=== PATIENT | female | born 1960 | race Hispanic/Latino ===

== ENCOUNTER 2023-08-02 11:15 | Emergency (ER) | payer OTHER, MEDICARE ==
[~2023-08-02] VITALS: Ht 165.1 cm; Wt 117.5 kg
[~2023-08-02 11:15] MED LIST: ACET-2079 PO; AMYL1CAP63 PO; ARIP10TA8 PO; CETI10TA87 PO; CLON0.5T23 PO; DICY20TA3 PO; ESOM40CA54 PO; FAMO40TA75 PO; FLUT16H NS; FURO40SO PO; FURO40TA5 PO; LIDO73LI TP; METO5TAB7 PO; MIRT-73 PO; MULT; NITR100C PO; ONDA8TAB12 PO; POTA-81 PO; PRED20TA3 PO; TELM20TA8 PO; VORT20TA PO; [UNRECOGNIZED DRUG - CODE] PO; [UNRECOGNIZED DRUG - OTHER]; [UNRECOGNIZED DRUG - REMARK]
[2023-08-02] MEDS: HYDROCODONE/ACETAMINOPHEN 5/325 MG TAB PO ONE (12:43)
[2023-08-02] MEDS ORDERED: IBUP-2077 PO (13:50)
[2023-08-02 13:56] VITALS: BP 149/84; PULSE 84; RESP 21; O2SAT 97
== END 2023-08-02 14:06 | disposition home or self-care (01) ==
LOC: EDH 11:15
DX: S93.491A Sprain of other ligament of right ankle, initial encounter (principal); M79.671 Pain in right foot; I10 Essential (primary) hypertension; J45.909 Unspecified asthma, uncomplicated; M19.90 Unspecified osteoarthritis, unspecified site; M79.7 Fibromyalgia; Z79.899 Other long term (current) drug therapy; Z90.49 Acquired absence of other specified parts of digestive tract; Z90.710 Acquired absence of both cervix and uterus; Z87.442 Personal history of urinary calculi; Z88.8 Allergy status to other drugs, medicaments and biological substances; Z98.890 Other specified postprocedural states; X58.XXXA Exposure to other specified factors, initial encounter; Y93.01 Activity, walking, marching and hiking; Y92.89 Other specified places as the place of occurrence of the external cause; Y99.8 Other external cause status
CPT/HCPCS: 73610; 73630

== ENCOUNTER 2023-11-21 10:26 | Emergency (ER) | payer OTHER, MEDICARE ==
[~2023-11-21] VITALS: Ht 165.1 cm; Wt 120.7 kg
[~2023-11-21 10:26] MED LIST changes: +ALBU2.5V2 IH; -AMYL1CAP63 PO; -ARIP10TA8 PO; -CETI10TA87 PO; -CLON0.5T23 PO; -DICY20TA3 PO; -ESOM40CA54 PO; -FAMO40TA75 PO; -FLUT16H NS; -FURO40SO PO; -FURO40TA5 PO; +LEVO750T39 PO; -LIDO73LI TP; -METO5TAB7 PO; -MIRT-73 PO; +MIRT-92 PO; +MONT-46 PO; -MULT; -NITR100C PO; -ONDA8TAB12 PO; -POTA-81 PO; -PRED20TA3 PO; +SERT-439 PO; -TELM20TA8 PO; +TRAZ-187 PO; -VORT20TA PO; -[UNRECOGNIZED DRUG - CODE] PO; -[UNRECOGNIZED DRUG - OTHER]; -[UNRECOGNIZED DRUG - REMARK]
[2023-11-21 11:32] LABS: BASOPHILS # (AUTO) 0.04 K/uL (0.00-0.20); BASOPHILS % (AUTO) 0.4 % (0.0-5.0); EOSINOPHILS # (AUTO) 0.16 K/uL (0.00-0.70); EOSINOPHILS % (AUTO) 1.6 % (0.0-8.0); IMMATURE GRANULOCYTE ABSOLUTE 0.15 K/uL (0-1); LYMPHOCYTES # (AUTO) 3.1 K/uL (1.0-4.8); LYMPHOCYTES % (AUTO) 31.6 % (21.0-51.0); MEAN CORPUSCULAR HGB CONC 31.6 g/dL (32.0-36.0); MEAN CORPUSCULAR VOLUME 88.5 fL (79-99); MONOCYTES # (AUTO) 0.8 K/uL (0.1-1.0); MONOCYTES % (AUTO) 8.5 % (3.0-13.0); NEUTROPHILS # (AUTO) 5.6 K/uL (1.8-7.7); NEUTROPHILS % (AUTO) 56.4 % (40.0-77.0); PLATELET COUNT (AUTO) 209 K/uL (130-400); RED BLOOD CELL COUNT(AUTO) 4.18 MIL/uL (4.00-5.50); RED CELL DISTRIBUTION WIDTH 16.1 % (11.0-15.5); WHITE BLOOD COUNT (AUTO) 9.9 K/uL (4.8-10.8)
[2023-11-21 11:47] LABS: POTASSIUM 4.3 mmol/L (3.5-5.1)
[2023-11-21 11:54] LABS: BILIRUBIN,TOTAL 0.4 mg/dL (0.2-1.0); TOTAL PROTEIN, SERUM 6.5 g/dL (6.0-8.3)
[2023-11-21 12:05] LABS: B-TYPE NATRIURETIC PEPTIDE 17 pg/mL (0-100)
[2023-11-21] MEDS: SOLU-MEDROL 125MG VIAL IVP ONE (13:21)
[2023-11-21 13:39] VITALS: PULSE 85; RESP 18
[2023-11-21] MEDS: ALBUTEROL 0.083% 2.5 MG/3 ML INH IH ONE (13:40)
[2023-11-21] MEDS: BUDESONIDE 0.5 MG/2 ML INH IH STA (13:40)
[2023-11-21] MEDS ORDERED: AUD IH (15:01)
[2023-11-21] MEDS ORDERED: CLAR-59 PO (15:01)
[2023-11-21 15:25] VITALS: BP 139/78; PULSE 85; RESP 20; O2SAT 97
== END 2023-11-21 15:24 | disposition home or self-care (01) ==
LOC: EDH 10:26
DX: J44.1 Chronic obstructive pulmonary disease with (acute) exacerbation (principal); I11.0 Hypertensive heart disease with heart failure; I50.9 Heart failure, unspecified; M19.90 Unspecified osteoarthritis, unspecified site; M79.7 Fibromyalgia; Z20.822 Contact with and (suspected) exposure to COVID-19; Z88.8 Allergy status to other drugs, medicaments and biological substances; Z79.899 Other long term (current) drug therapy; Z90.49 Acquired absence of other specified parts of digestive tract; Z90.710 Acquired absence of both cervix and uterus
CPT/HCPCS: 36415; 71045; 80053; 83735; 83880; 84484; 85025; 87426; 93005; 94640; 96372; 96374; J2919

== ENCOUNTER 2023-12-29 10:59 | Inpatient (IN) | payer OTHER, MEDICARE ==
[~2023-12-29] VITALS: Ht 165.1 cm; Wt 123.5 kg
[~2023-12-29 10:59] MED LIST changes: +AUD IH; +CLAR-59 PO
[2023-12-29 11:47] LABS: BASOPHILS # (AUTO) 0.04 K/uL (0.00-0.20); BASOPHILS % (AUTO) 0.4 % (0.0-5.0); EOSINOPHILS # (AUTO) 0.09 K/uL (0.00-0.70); EOSINOPHILS % (AUTO) 0.9 % (0.0-8.0); HEMATOCRIT 37.6 % (36-48); IMMATURE GRANULOCYTE ABSOLUTE 0.07 K/uL (0-1); LYMPHOCYTES # (AUTO) 2.7 K/uL (1.0-4.8); LYMPHOCYTES % (AUTO) 26.8 % (21.0-51.0); MEAN CORPUSCULAR HEMOGLOBIN 28.6 pg (27.0-33.0); MEAN CORPUSCULAR HGB CONC 31.4 g/dL (32.0-36.0); MONOCYTES # (AUTO) 0.5 K/uL (0.1-1.0); MONOCYTES % (AUTO) 5.4 % (3.0-13.0); NEUTROPHILS # (AUTO) 6.6 K/uL (1.8-7.7); NEUTROPHILS % (AUTO) 65.8 % (40.0-77.0); PLATELET COUNT (AUTO) 204 K/uL (130-400); RED BLOOD CELL COUNT(AUTO) 4.13 MIL/uL (4.00-5.50); RED CELL DISTRIBUTION WIDTH 14.4 % (11.0-15.5)
[2023-12-29 11:57] LABS: CREATININE 1.1 mg/dL (0.5-1.0); POTASSIUM 3.7 mmol/L (3.5-5.1)
[2023-12-29 12:18] LABS: B-TYPE NATRIURETIC PEPTIDE 14 pg/mL (0-100)
[2023-12-29] MEDS: furoSEMIDE 40MG VIAL IV ONE (12:21)
[2023-12-29 12:56] VITALS: PULSE 62; RESP 24
[2023-12-29] MEDS: IpraTROPium/alBUTERol SULFATE 3 ML SOLUTION IH ONE (12:56)
[2023-12-29 14:22] LABS: SARS-CoV-2, RNA, NAAT NEGATIVE SARS CoV-2 (NEGATIVE)
[2023-12-29 14:29] LABS: INFLUENZA TYPE A Negative For Type A (NEGATIVE); INFLUENZA TYPE B Negative For Type B (NEGATIVE)
[2023-12-29 15:43] LABS: ABG BASE EXCESS 8.1 mmol/L (-2.0-3.0); ABG HCO3 34.4 mmol/L (21.0-28.0); ABG OXYGEN SATURATION 96.5 % (94.0-98.0); ABG PCO2 54 mmHg (32-45); ABG PH 7.425 (7.350-7.450); VENT MODE, BG NC (ROOM AIR)
[2023-12-29] MEDS ORDERED: LOSA25TA41 PO (16:59)
[2023-12-29] MEDS ORDERED: ACET-2079 PO (16:59)
[2023-12-29] MEDS ORDERED: CLON0.252 PO (16:59)
[2023-12-29] MEDS ORDERED: ATOR10TA69 PO (16:59)
[2023-12-29] MEDS ORDERED: PRED20TA3 PO (16:59)
[2023-12-29] MEDS ORDERED: CICL6.6S22 TP (16:59)
[2023-12-29] MEDS ORDERED: METO-391 PO (16:59)
[2023-12-29] MEDS ORDERED: PREG100C PO (16:59)
[2023-12-29] MEDS ORDERED: MAG/ALUM/SIMETH 30 ML UDCUP PO PRN (17:00)
[2023-12-29] MEDS ORDERED: guaiFENesin-DM 200/20MG 10ML PO PRN (17:00)
[2023-12-29] MEDS ORDERED: cefTRIAXone 1G VIAL 1 GM in 0.9%NACL 50ML 50 ML IV SCH (17:00)
[2023-12-29] MEDS ORDERED: NITROGLYCERIN 0.4 MG SL TAB SL PRN (17:00)
[2023-12-29] MEDS ORDERED: hydrALAZine 20MG/ML VIAL IV PRN (17:00)
[2023-12-29] MEDS ORDERED: LACTULOSE 20 GM/30 ML UDCUP PO PRN (17:00)
[2023-12-29] MEDS ORDERED: DiphenhydrAMINE HCL 25 MG CAPSULE PO PRN (17:00)
[2023-12-29] MEDS: cefTRIAXone 1G VIAL IVPB SCH (17:00)
[2023-12-29] MEDS ORDERED: ONDANSETRON 4MG INJ IV PRN (17:00)
[2023-12-29] MEDS ORDERED: GLUCAGON 1MG KIT 1 MG ML IM PRN (17:30)
[2023-12-29] MEDS ORDERED: DEXTROSE 50%-WATER 50 ML DISP.SYRIN IV PRN (17:30)
[2023-12-29] MEDS: cefTRIAXone 1G VIAL IVPB ONE (17:33)
[2023-12-29 18:20] LABS: HEMOGLOBIN A1C 7.1 % (4.0-6.0)
[2023-12-29] MEDS: IpraTROPium/alBUTERol SULFATE 3 ML SOLUTION IH SCH (18:31)
[2023-12-29 18:32] VITALS: PULSE 82; RESP 22
[2023-12-29 18:33] VITALS: PULSE 84; RESP 19; O2SAT 97
[2023-12-29] MEDS: SODIUM CHLORIDE 3% FOR INHALATION 4 ML/AMP VIAL.NEB IH ONE (18:47)
[2023-12-29] MEDS: AZITHROMYCIN 500MG+NS 250ML 250 ML IV SCH (19:14)
[2023-12-29] MEDS: acetaMINOPHEN 325 MG TAB PO PRN (19:36)
[2023-12-29] MEDS: FAMOTIDINE 20MG VIAL IV SCH (20:52)
[2023-12-29] MEDS: atorVAStatin 10 MG TABLET PO SCH (20:53)
[2023-12-29] MEDS: clonazePAM 0.5 MG TABLET PO SCH (20:53)
[2023-12-29] MEDS: pregABALin 100 MG CAPSULE PO SCH (20:53)
[2023-12-29] MEDS: HEParin 5,000 UNIT VIAL SQ SCH (20:55)
[2023-12-29] MEDS: INSULIN humuLIN R 100 UNIT/ML 3ML SQ SCH (20:56)
[2023-12-29] MEDS: CICLOPIROX TP SCH (21:00)
[2023-12-29 23:23] VITALS: BP 116/73; PULSE 89; RESP 24; TEMP 98.3
[2023-12-29 23:37] VITALS: PULSE 84; PULSE 86; RESP 19; RESP 22; O2SAT 97
[2023-12-29 23:49] VITALS: PULSE 80; RESP 19; O2SAT 96
[2023-12-30] VITALS (14 sets, daily range): BP systolic 101–136; BP diastolic 59–90; PULSE 50–87; RESP 18–22; TEMP 97.7–98.7; O2SAT 95–100
[2023-12-30] MEDS: SODIUM CHLORIDE 3% FOR INHALATION 4 ML/AMP VIAL.NEB IH ONE ×2 (06:28→20:12)
[2023-12-30] MEDS ORDERED: ACET-2079 PO (07:57)
[2023-12-30] MEDS: PREDNISONE 20 MG TABLET PO SCH (07:59)
[2023-12-30] MEDS: LoSARTan 25 MG TABLET PO SCH (08:00)
[2023-12-30] MEDS: metOPROLol sucCINATE 50 MG TAB.SR.24H PO SCH (08:00)
[2023-12-30] MEDS: furoSEMIDE 40MG VIAL IVP SCH (08:00)
[2023-12-30] MEDS: acetaMINOPHEN WITH coDEINE 1 TAB TAB PO PRN (08:01)
[2023-12-30 08:13] LABS: BASOPHILS # (AUTO) 0.03 K/uL (0.00-0.20); BASOPHILS % (AUTO) 0.3 % (0.0-5.0); EOSINOPHILS # (AUTO) 0.16 K/uL (0.00-0.70); EOSINOPHILS % (AUTO) 1.4 % (0.0-8.0); HEMATOCRIT 37.2 % (36-48); IMMATURE GRANULOCYTE ABSOLUTE 0.05 K/uL (0-1); LYMPHOCYTES # (AUTO) 5.8 K/uL (1.0-4.8); LYMPHOCYTES % (AUTO) 51.3 % (21.0-51.0); MEAN CORPUSCULAR HEMOGLOBIN 27.8 pg (27.0-33.0); MEAN CORPUSCULAR HGB CONC 30.4 g/dL (32.0-36.0); MEAN CORPUSCULAR VOLUME 91.4 fL (79-99); MONOCYTES # (AUTO) 1.3 K/uL (0.1-1.0); MONOCYTES % (AUTO) 11.3 % (3.0-13.0); NEUTROPHILS % (AUTO) 35.3 % (40.0-77.0); PLATELET COUNT (AUTO) 194 K/uL (130-400); RED BLOOD CELL COUNT(AUTO) 4.07 MIL/uL (4.00-5.50); RED CELL DISTRIBUTION WIDTH 14.3 % (11.0-15.5); WHITE BLOOD COUNT (AUTO) 11.3 K/uL (4.8-10.8)
[2023-12-30 08:25] LABS: CREATININE 1.1 mg/dL (0.5-1.0); POTASSIUM 3.2 mmol/L (3.5-5.1)
[2023-12-30 12:38] LABS: INR 0.96 (0.85-1.15); PROTHROMBIN TIME 10.4 SEC (9.6-11.6)
[2023-12-30] MEDS: KCL 20 MEQ ERTAB PO ONE (14:51)
[2023-12-30] MEDS ORDERED: BENZONATATE 100 MG CAPSULE PO PRN (17:30)
[2023-12-30] MEDS: guaiFENesin-coDEINE 5 ML SYRUP PO SCH (17:38)
[2023-12-30] MEDS: acetylCYSTeine 20% 200MG/ML 4ML VIAL NEB SCH (19:24)
[2023-12-30] MEDS: BUDESONIDE 0.5 MG/2 ML INH IH SCH (19:52)
[2023-12-31] VITALS (15 sets, daily range): BP systolic 110–132; BP diastolic 69–77; PULSE 72–100; RESP 18–22; TEMP 97.9–99.7; O2SAT 94–99
[2023-12-31 04:02] LABS: BASOPHILS # (AUTO) 0.03 K/uL (0.00-0.20); BASOPHILS % (AUTO) 0.4 % (0.0-5.0); EOSINOPHILS # (AUTO) 0.16 K/uL (0.00-0.70); EOSINOPHILS % (AUTO) 1.9 % (0.0-8.0); HEMATOCRIT 33.5 % (36-48); IMMATURE GRANULOCYTE ABSOLUTE 0.03 K/uL (0-1); LYMPHOCYTES # (AUTO) 3.8 K/uL (1.0-4.8); MEAN CORPUSCULAR HGB CONC 29.9 g/dL (32.0-36.0); MEAN CORPUSCULAR VOLUME 93.8 fL (79-99); MONOCYTES # (AUTO) 0.9 K/uL (0.1-1.0); MONOCYTES % (AUTO) 10.1 % (3.0-13.0); NEUTROPHILS # (AUTO) 3.6 K/uL (1.8-7.7); NEUTROPHILS % (AUTO) 42.2 % (40.0-77.0); PLATELET COUNT (AUTO) 183 K/uL (130-400); RED BLOOD CELL COUNT(AUTO) 3.57 MIL/uL (4.00-5.50); RED CELL DISTRIBUTION WIDTH 14.2 % (11.0-15.5); WHITE BLOOD COUNT (AUTO) 8.5 K/uL (4.8-10.8)
[2023-12-31 04:18] LABS: ALBUMIN 2.8 g/dL (3.5-5.0); BILIRUBIN,TOTAL 0.3 mg/dL (0.2-1.0); MAGNESIUM 2.1 mg/dL (1.80-2.40); POTASSIUM 3.4 mmol/L (3.5-5.1); TOTAL PROTEIN, SERUM 5.8 g/dL (6.0-8.3)
[2023-12-31] MEDS: POTASSIUM CHLORIDE 10% ELIXIR 20 MEQ/15 ML UDCUP PO PRN (05:42)
[2023-12-31] MEDS ORDERED: MAGNESIUM 2GM PREMIX 50ML 50 ML IV PRN (06:00)
[2023-12-31] MEDS: monteLUKAST sodIUM 10 MG TAB PO SCH (09:29)
[2023-12-31] MEDS: KCL 20 MEQ ERTAB PO PRN (09:30)
[2023-12-31] MEDS ORDERED: IOHEXOL 350 MG/ML 100ML INFUS..BTL IV ONE (11:58)
[2023-12-31] MEDS: KCL 20 MEQ ERTAB PO ONE (12:03)
[2024-01-01] VITALS (14 sets, daily range): BP systolic 114–148; BP diastolic 66–82; PULSE 67–105; RESP 18–23; TEMP 97.9–98.9; O2SAT 94–96
[2024-01-01 04:09] LABS: BASOPHILS # (AUTO) 0.02 K/uL (0.00-0.20); BASOPHILS % (AUTO) 0.2 % (0.0-5.0); EOSINOPHILS # (AUTO) 0.19 K/uL (0.00-0.70); EOSINOPHILS % (AUTO) 2.1 % (0.0-8.0); HEMATOCRIT 33.3 % (36-48); IMMATURE GRANULOCYTE ABSOLUTE 0.06 K/uL (0-1); LYMPHOCYTES # (AUTO) 3.8 K/uL (1.0-4.8); LYMPHOCYTES % (AUTO) 41.6 % (21.0-51.0); MEAN CORPUSCULAR HGB CONC 30.3 g/dL (32.0-36.0); MEAN CORPUSCULAR VOLUME 92.2 fL (79-99); MONOCYTES # (AUTO) 0.9 K/uL (0.1-1.0); MONOCYTES % (AUTO) 10.1 % (3.0-13.0); NEUTROPHILS # (AUTO) 4.1 K/uL (1.8-7.7); NEUTROPHILS % (AUTO) 45.3 % (40.0-77.0); PLATELET COUNT (AUTO) 198 K/uL (130-400); RED BLOOD CELL COUNT(AUTO) 3.61 MIL/uL (4.00-5.50); RED CELL DISTRIBUTION WIDTH 14.2 % (11.0-15.5)
[2024-01-01 04:40] LABS: ALBUMIN 2.8 g/dL (3.5-5.0); BILIRUBIN,TOTAL 0.3 mg/dL (0.2-1.0); CREATININE 0.9 mg/dL (0.5-1.0); MAGNESIUM 2.1 mg/dL (1.80-2.40); POTASSIUM 3.6 mmol/L (3.5-5.1); TOTAL PROTEIN, SERUM 5.8 g/dL (6.0-8.3)
[2024-01-01] MEDS: REGADENOSON 0.4 MG/5 ML PF SYG IVP SCH (19:00)
[2024-01-01] MEDS: OXYcodONE HCL 5 MG TAB PO ONE (19:00)
[2024-01-02] VITALS (14 sets, daily range): BP systolic 97–144; BP diastolic 58–85; PULSE 74–118; RESP 18–22; TEMP 97.9–98.8; O2SAT 94–96
[2024-01-02 04:15] LABS: HEMATOCRIT 32.1 % (36-48); MEAN CORPUSCULAR HEMOGLOBIN 27.8 pg (27.0-33.0); MEAN CORPUSCULAR HGB CONC 30.5 g/dL (32.0-36.0); MEAN CORPUSCULAR VOLUME 91.2 fL (79-99); RED BLOOD CELL COUNT(AUTO) 3.52 MIL/uL (4.00-5.50); RED CELL DISTRIBUTION WIDTH 14.4 % (11.0-15.5); WHITE BLOOD COUNT (AUTO) 9.1 K/uL (4.8-10.8)
[2024-01-02 04:30] LABS: ALBUMIN 2.7 g/dL (3.5-5.0); BILIRUBIN,TOTAL 0.3 mg/dL (0.2-1.0); CREATININE 0.9 mg/dL (0.5-1.0); POTASSIUM 3.4 mmol/L (3.5-5.1); TOTAL PROTEIN, SERUM 5.5 g/dL (6.0-8.3)
[2024-01-02] MEDS: furoSEMIDE 40MG VIAL IVP SCH (06:01)
[2024-01-02 06:43] LABS: THYROID STIMULATING HORMONE 0.08 uIU/mL (0.36-3.74)
[2024-01-02] MEDS ORDERED: IOHEXOL-350 75 ML VIAL IV ONE (08:45)
[2024-01-02] MEDS: clonazePAM 0.5 MG TABLET PO ONE (12:15)
[2024-01-02] MEDS: hydroMORPHone 0.5 MG SYG (0.5MG/0.5ML) IVP ONE ×2 (12:16→15:16)
[2024-01-02] MEDS: IpraTROPium/alBUTERol SULFATE 3 ML SOLUTION IH PRN (18:46)
[2024-01-02] MEDS: REGADENOSON 0.4 MG/5 ML PF SYG IVP SCH (19:00)
[2024-01-03] VITALS (12 sets, daily range): BP systolic 98–129; BP diastolic 54–88; PULSE 80–100; RESP 18–20; TEMP 97.8–98.4; O2SAT 95–97
[2024-01-03 03:59] LABS: BASOPHILS # (AUTO) 0.03 K/uL (0.00-0.20); BASOPHILS % (AUTO) 0.3 % (0.0-5.0); EOSINOPHILS # (AUTO) 0.12 K/uL (0.00-0.70); EOSINOPHILS % (AUTO) 1.2 % (0.0-8.0); HEMATOCRIT 34.1 % (36-48); IMMATURE GRANULOCYTE ABSOLUTE 0.08 K/uL (0-1); LYMPHOCYTES # (AUTO) 3.8 K/uL (1.0-4.8); LYMPHOCYTES % (AUTO) 37.5 % (21.0-51.0); MEAN CORPUSCULAR HGB CONC 30.5 g/dL (32.0-36.0); MEAN CORPUSCULAR VOLUME 91.7 fL (79-99); MONOCYTES # (AUTO) 1.1 K/uL (0.1-1.0); MONOCYTES % (AUTO) 10.9 % (3.0-13.0); NEUTROPHILS % (AUTO) 49.3 % (40.0-77.0); PLATELET COUNT (AUTO) 194 K/uL (130-400); RED BLOOD CELL COUNT(AUTO) 3.72 MIL/uL (4.00-5.50); RED CELL DISTRIBUTION WIDTH 14.4 % (11.0-15.5); WHITE BLOOD COUNT (AUTO) 10.1 K/uL (4.8-10.8)
[2024-01-03 04:11] LABS: CREATININE 1.1 mg/dL (0.5-1.0); POTASSIUM 3.6 mmol/L (3.5-5.1)
[2024-01-03 10:42] LABS: ABG BASE EXCESS 3.6 mmol/L (-2.0-3.0); ABG HCO3 27.7 mmol/L (21.0-28.0); ABG OXYGEN SATURATION 94.9 % (94.0-98.0); ABG PCO2 40 mmHg (32-45); ABG PH 7.456 (7.350-7.450); DEVICE COMMENT LRSANJUANA; PO2, ARTERIAL BG 70.1 mmHg (83.0-108.0); VENT MODE, BG NC (ROOM AIR)
[2024-01-03] MEDS: AcetaZOLAMIDE 250 MG TAB PO SCH (11:23)
[2024-01-03] MEDS: ASPIRIN 81MG CHEW TAB PO SCH (11:24)
[2024-01-03] MEDS: dilTIAZem 120MG SR CAP PO SCH (11:24)
[2024-01-03] MEDS: ISOSORBIDE MONO 30MG SR TAB PO SCH (11:31)
[2024-01-03] MEDS: hydroMORPHone 0.5 MG SYG (0.5MG/0.5ML) IVP ONE (15:40)
[2024-01-04] VITALS (8 sets, daily range): BP systolic 103–126; BP diastolic 54–78; PULSE 70–91; RESP 17–20; TEMP 98–98.6; O2SAT 97–98
[2024-01-04 05:35] LABS: BASOPHILS # (AUTO) 0.03 K/uL (0.00-0.20); BASOPHILS % (AUTO) 0.3 % (0.0-5.0); EOSINOPHILS # (AUTO) 0.14 K/uL (0.00-0.70); EOSINOPHILS % (AUTO) 1.3 % (0.0-8.0); HEMATOCRIT 32.3 % (36-48); LYMPHOCYTES % (AUTO) 38.1 % (21.0-51.0); MEAN CORPUSCULAR HEMOGLOBIN 27.9 pg (27.0-33.0); MEAN CORPUSCULAR VOLUME 90.2 fL (79-99); MONOCYTES # (AUTO) 1.1 K/uL (0.1-1.0); MONOCYTES % (AUTO) 10.1 % (3.0-13.0); NEUTROPHILS # (AUTO) 5.2 K/uL (1.8-7.7); NEUTROPHILS % (AUTO) 49.2 % (40.0-77.0); PLATELET COUNT (AUTO) 205 K/uL (130-400); RED BLOOD CELL COUNT(AUTO) 3.58 MIL/uL (4.00-5.50); RED CELL DISTRIBUTION WIDTH 14.3 % (11.0-15.5); WHITE BLOOD COUNT (AUTO) 10.5 K/uL (4.8-10.8)
[2024-01-04 05:44] LABS: CREATININE 1.1 mg/dL (0.5-1.0); POTASSIUM 3.4 mmol/L (3.5-5.1)
[2024-01-04 08:08] LABS: ABG BASE EXCESS 4.8 mmol/L (-2.0-3.0); ABG HCO3 29.7 mmol/L (21.0-28.0); ABG OXYGEN SATURATION 96.1 % (94.0-98.0); ABG PCO2 45 mmHg (32-45); PO2, ARTERIAL BG 79.4 mmHg (83.0-108.0); VENT MODE, BG 2 L NC (ROOM AIR)
[2024-01-04] MEDS ORDERED: ACET250T28 PO (14:47)
[2024-01-04] MEDS ORDERED: ASPI-1005 PO (14:47)
[2024-01-04] MEDS ORDERED: DILT120C89 PO (14:47)
[2024-01-04] MEDS ORDERED: ISOS30TA92 PO (14:47)
== END 2024-01-04 15:58 | disposition home or self-care (01) | DRG 193 ==
LOC: EDH 10:59 → EDHIP 16:59 → 2AH 23:00
PROVIDERS: ADMIT Hospitalist; ATTEND Hospitalist
PROC: 5A09357 Assistance with Respiratory Ventilation, Less than 24 Consecutive Hours, Continuous Positive Airway Pressure (ICD-10-PCS; 2023-12-30)
PROC: 5A09357 Assistance with Respiratory Ventilation, Less than 24 Consecutive Hours, Continuous Positive Airway Pressure (ICD-10-PCS; 2023-12-31)
PROC: 5A09357 Assistance with Respiratory Ventilation, Less than 24 Consecutive Hours, Continuous Positive Airway Pressure (ICD-10-PCS; 2024-01-01)
PROC: 4A02XM4 Measurement of Cardiac Total Activity, External Approach (ICD-10-PCS; principal; 2024-01-02)
PROC: 3E073KZ Introduction of Other Diagnostic Substance into Coronary Artery, Percutaneous Approach (ICD-10-PCS; 2024-01-02)
PROC: 5A09357 Assistance with Respiratory Ventilation, Less than 24 Consecutive Hours, Continuous Positive Airway Pressure (ICD-10-PCS; 2024-01-02)
PROC: 5A09357 Assistance with Respiratory Ventilation, Less than 24 Consecutive Hours, Continuous Positive Airway Pressure (ICD-10-PCS; 2024-01-03)
PROC: 5A09357 Assistance with Respiratory Ventilation, Less than 24 Consecutive Hours, Continuous Positive Airway Pressure (ICD-10-PCS; 2024-01-04)
DX: J18.9 Pneumonia, unspecified organism (principal); J96.21 Acute and chronic respiratory failure with hypoxia; J96.22 Acute and chronic respiratory failure with hypercapnia; J45.901 Unspecified asthma with (acute) exacerbation; J44.0 Chronic obstructive pulmonary disease with (acute) lower respiratory infection; E66.2 Morbid (severe) obesity with alveolar hypoventilation; J44.1 Chronic obstructive pulmonary disease with (acute) exacerbation; N17.9 Acute kidney failure, unspecified; Z68.42 Body mass index [BMI] 45.0-49.9, adult; N18.9 Chronic kidney disease, unspecified; E11.22 Type 2 diabetes mellitus with diabetic chronic kidney disease; F41.9 Anxiety disorder, unspecified; I27.20 Pulmonary hypertension, unspecified; E11.65 Type 2 diabetes mellitus with hyperglycemia; F32.A Depression, unspecified; G89.29 Other chronic pain; D50.9 Iron deficiency anemia, unspecified; I12.9 Hypertensive chronic kidney disease with stage 1 through stage 4 chronic kidney disease, or unspecified chronic kidney disease; E05.90 Thyrotoxicosis, unspecified without thyrotoxic crisis or storm; E78.5 Hyperlipidemia, unspecified; J98.4 Other disorders of lung; Z79.52 Long term (current) use of systemic steroids; Z87.891 Personal history of nicotine dependence; Z87.442 Personal history of urinary calculi; Z82.49 Family history of ischemic heart disease and other diseases of the circulatory system; Z79.899 Other long term (current) drug therapy; Z90.710 Acquired absence of both cervix and uterus; Z99.81 Dependence on supplemental oxygen
CPT/HCPCS: 36415; 36556; 36600; 71045; 71275; 72131; 78452; 80048; 80053; 82040; 82803; 82948; 83036; 83735; 83880; 84100; 84132; 84145; 84439; 84443; 84484; 85025; 85027; 85378; 85610; 85730; 87040; 87635; 87804; 87880; 93005; 93017; 93306; 93970; 94060; 94640; 94664; 94727; 94729; 96365; 96372; 96375; A9500; C1894; G0378; J0456; J0696; J1170; J1644; J1815; J1940; J2785; J3490; Q9967; C1750; G8980-CI; G8983-CI